=== PATIENT | female | born 1935 | race African-American/Black ===

== ENCOUNTER 2022-07-31 13:34 | Inpatient (IN) ==
[2022-07-31 15:19] LABS: Basophils % 0.1 % (0.0-0.8); Hematocrit 29.5 VOL% (35.7-47.0); Hemoglobin 9.5 GM/DL (12.0-16.0); Immature Granulocytes % 0.3 %; Immature Granulocytes Absolute 0.03 #; Lymphocytes # 0.7 10*3/uL (1.4-4.0); Lymphocytes % 7.3 % (21.3-54.2); Mean Corpuscular HGB Conc 32.2 GM/DL (32-36); Mean Platelet Volume 11.3 FL (9.6-12.0); Monocytes # 1.4 10*3/uL (0.11-0.8); Monocytes % 14.7 % (1.7-12.7); Neutrophils % 77.6 % (38.7-73.9); Platelet Count 154 T/CUMM (130-400); Red Blood Count 3.01 MC/CUMM (3.8-5.5); Red Cell Distribution Width 14.1 % (9.3-17.3); White Blood Count 9.7 T/CUMM (4-12)
[2022-07-31] MEDS ORDERED: ONDANSETRON 4 MG/2 ML VIAL IV PRN (15:39)
[2022-07-31] MEDS ORDERED: hydrALAZINE 20 MG/1 ML VIAL IV PRN (15:39)
[2022-07-31] MEDS ORDERED: ENOXAPARIN 30 MG/0.3 ML SYRINGE SUBCUT SCH (16:00)
[2022-07-31 16:12] LABS: Bacteria,Urine Occasional /HPF (Few); Bilirubin,Urine Negative (Negative); Blood, Urine Moderate mg/dL (Negative); Glucose,Urine (UA) 50 mg/dL (Negative); Hyaline Casts,Urine 11 /LPF (0-3); Ketones,Urine Negative (Negative); Nitrite,Urine Negative (Negative); Protein,Urine 100 mg/dL (Negative); RBC,Urine 1 /HPF (0-4); Squamous Epithelial Cell,Urine Occasional /HPF (0-10); Urine Appearance CLOUDY (Clear); Urine Color Yellow (Yellow); Urine Specific Gravity 1.015 (1.001-1.035); Urine Urobilinogen < 2.0 eU/dL (<2.0)
[2022-07-31 16:15] LABS: Albumin 3.5 G/DL (3.4-5.0); Calcium 9.4 MG/DL (8.5-10.1); Osmolality,Calculated 295.1 MOS/KG (273-304); Potassium 3.7 MMOL/L (3.5-5.1); Total Protein 7.1 G/DL (6.4-8.2)
[2022-07-31] MEDS: SODIUM CHLORIDE 0.9% 1,000 ML IV SCH (17:02)
[2022-07-31] MEDS: LEVALBUTEROL 1.25 MG/3 ML NEB RESP TX SCH (21:15)
[2022-07-31] MEDS: DONEPEZIL 5 MG TABLET PO SCH (22:23)
[2022-07-31] MEDS: METOPROLOL TARTRATE 25 MG TABLET PO SCH (22:24)
[2022-08-01] MEDS: LEVALBUTEROL 1.25 MG/3 ML NEB RESP TX SCH ×4 (00:30→21:00)
[2022-08-01] MEDS: SODIUM CHLORIDE 0.9% 1,000 ML IV SCH ×3 (02:15→18:57)
[2022-08-01 04:48] LABS: Basophils % 0.1 % (0.0-0.8); Hematocrit 27.8 VOL% (35.7-47.0); Hemoglobin 8.7 GM/DL (12.0-16.0); Immature Granulocytes % 0.6 %; Immature Granulocytes Absolute 0.05 #; Lymphocytes # 0.7 10*3/uL (1.4-4.0); Lymphocytes % 7.7 % (21.3-54.2); Mean Corpuscular HGB Conc 31.3 GM/DL (32-36); Mean Platelet Volume 11.7 FL (9.6-12.0); Monocytes # 1.4 10*3/uL (0.11-0.8); Neutrophils % 75.6 % (38.7-73.9); Platelet Count 130 T/CUMM (130-400); Red Cell Distribution Width 14.2 % (9.3-17.3); White Blood Count 8.8 T/CUMM (4-12)
[2022-08-01 05:17] LABS: Calcium 8.5 MG/DL (8.5-10.1); Osmolality,Calculated 295.8 MOS/KG (273-304); Potassium 3.5 MMOL/L (3.5-5.1); Thyroid Stimulating Hormone 2.19 uIU/ml (0.358-3.74)
[2022-08-01 05:52] LABS: Band Neutrophils 4 % (0-10); Lymphocytes 17 % (20-55); Total Cells Counted 100
[2022-08-01 05:53] LABS: Platelet Estimate Adequate
[2022-08-01] MEDS: PANTOPRAZOLE 40 MG TABLET PO SCH (08:32)
[2022-08-01] MEDS: METOPROLOL TARTRATE 25 MG TABLET PO SCH ×2 (08:32→20:10)
[2022-08-01] MEDS ORDERED: ONDANSETRON 4 MG/2 ML VIAL ONE (10:29)
[2022-08-01] MEDS ORDERED: MIDAZOLAM 2 MG/2 ML VIAL ONE (10:29)
[2022-08-01] MEDS ORDERED: KETAMINE 500 MG/10 ML VIAL ONE (10:30)
[2022-08-01] MEDS ORDERED: buprenorphine HCL 0.3 MG/ML VIAL ONE (10:30)
[2022-08-01] MEDS ORDERED: ROPIVACAINE 0.5% 30 ML VIAL ONE (10:33)
[2022-08-01] MEDS ORDERED: DEXAMETHASONE 4 MG/1 ML VIAL ONE (10:33)
[2022-08-01] MEDS ORDERED: LIDOCAINE 1% 5 ML VIAL ONE (10:33)
[2022-08-01] MEDS ORDERED: ePHEDrine 50 MG/ML VIAL ONE (13:09)
[2022-08-01] MEDS ORDERED: PHENYLEPHRINE 10 MG/1 ML VIAL IV ONE ×3 (13:16→14:21)
[2022-08-01] MEDS ORDERED: PHENYLEPHRINE 1 MG/10 ML SYRINGE IV ONE (14:03)
[2022-08-01] MEDS ORDERED: LACTATED RINGERS 1,000 ML IV ONE (14:03)
[2022-08-01] MEDS ORDERED: SEVOFLURANE 1 UNIT/15 MINUTE INH ONE (14:03)
[2022-08-01] MEDS ORDERED: ETOMIDATE 40 MG/20 ML VIAL IV ONE (14:03)
[2022-08-01] MEDS ORDERED: MAGNESIUM HYDROXIDE SUSP 30 ML UDCUP PO PRN (14:05)
[2022-08-01 14:53] LABS: Amorphous Crystals,Urine Occasional /HPF (Few); Bacteria,Urine Occasional /HPF (Few); Bilirubin,Urine Negative (Negative); Blood, Urine Moderate mg/dL (Negative); Glucose,Urine (UA) Negative (Negative); Hyaline Casts,Urine 10 /LPF (0-3); Ketones,Urine 5 mg/dL (Negative); Mucus,Urine Occasional /LPF (Occasional); Nitrite,Urine Negative (Negative); Protein,Urine Negative (Negative); RBC,Urine 19 /HPF (0-4); Squamous Epithelial Cell,Urine Occasional /HPF (0-10); Urine Appearance Slightly Hazy (Clear); Urine Color Yellow (Yellow); Urine Specific Gravity 1.016 (1.001-1.035); Urine Urobilinogen < 2.0 eU/dL (<2.0)
[2022-08-01] MEDS ORDERED: PHENYLEPHRINE DRIP 40 MG/250 ML PREMIX IV ONE (15:25)
[2022-08-01] MEDS ORDERED: PHENYLEPHRINE DRIP 40 MG/250 ML PREMIX IV PRN (15:33)
[2022-08-01] MEDS: POTASSIUM CHLORIDE INJ 20 MEQ in LACTATED RINGERS 1,000 ML IV SCH (16:01)
[2022-08-01] MEDS: DONEPEZIL 5 MG TABLET PO SCH (20:10)
[2022-08-01] MEDS: DOCUSATE SODIUM 100 MG CAPSULE PO SCH (20:10)
[2022-08-02] MEDS: LEVALBUTEROL 1.25 MG/3 ML NEB RESP TX SCH ×4 (00:15→19:55)
[2022-08-02] MEDS: MORPHINE 2 MG/1 ML SYRINGE IV PRN (01:19)
[2022-08-02] MEDS: POTASSIUM CHLORIDE INJ 20 MEQ in LACTATED RINGERS 1,000 ML IV SCH ×3 (02:39→16:13)
[2022-08-02 04:40] LABS: Hematocrit 23.1 VOL% (35.7-47.0); Hemoglobin 7.3 GM/DL (12.0-16.0); Immature Granulocytes % 0.5 %; Immature Granulocytes Absolute 0.04 #; Lymphocytes # 0.3 10*3/uL (1.4-4.0); Lymphocytes % 3.5 % (21.3-54.2); Mean Corpuscular HGB Conc 31.6 GM/DL (32-36); Mean Corpuscular Volume 100.4 FL (87-102); Mean Platelet Volume 11.3 FL (9.6-12.0); Monocytes # 1.1 10*3/uL (0.11-0.8); Monocytes % 12.9 % (1.7-12.7); Neutrophils % 83.1 % (38.7-73.9); Platelet Count 135 T/CUMM (130-400); Red Cell Distribution Width 14.4 % (9.3-17.3); White Blood Count 8.2 T/CUMM (4-12)
[2022-08-02 05:01] LABS: Albumin 2.8 G/DL (3.4-5.0); Bilirubin,Total 0.8 MG/DL (0.20-1.00); Calcium 8.2 MG/DL (8.5-10.1); Osmolality,Calculated 306.4 MOS/KG (273-304); Potassium 3.8 MMOL/L (3.5-5.1); Total Protein 6.4 G/DL (6.4-8.2)
[2022-08-02 05:07] LABS: Lymphocytes 7 % (20-55); Platelet Estimate Adequate; Total Cells Counted 100
[2022-08-02] MEDS ORDERED: SODIUM CHLORIDE 0.9% 1,000 ML IV PRN (07:07)
[2022-08-02] MEDS ORDERED: FUROSEMIDE 40 MG/4 ML VIAL IV PRN (07:08)
[2022-08-02] MEDS: DOCUSATE SODIUM 100 MG CAPSULE PO SCH ×2 (08:42→20:35)
[2022-08-02] MEDS: METOPROLOL TARTRATE 25 MG TABLET PO SCH ×2 (08:42→20:43)
[2022-08-02] MEDS: FONDAPARINUX 2.5 MG/0.5 ML SYRINGE SUBCUT SCH (08:43)
[2022-08-02] MEDS: PANTOPRAZOLE 40 MG TABLET PO SCH (08:43)
[2022-08-02] MEDS: DONEPEZIL 5 MG TABLET PO SCH (20:43)
[2022-08-03] MEDS: LEVALBUTEROL 1.25 MG/3 ML NEB RESP TX SCH ×4 (00:30→19:07)
[2022-08-03] MEDS: POTASSIUM CHLORIDE INJ 20 MEQ in LACTATED RINGERS 1,000 ML IV SCH ×2 (02:52→09:57)
[2022-08-03 05:01] LABS: Basophils % 0.1 % (0.0-0.8); Hematocrit 28.4 VOL% (35.7-47.0); Hemoglobin 9.3 GM/DL (12.0-16.0); Immature Granulocytes % 0.3 %; Immature Granulocytes Absolute 0.02 #; Lymphocytes # 0.5 10*3/uL (1.4-4.0); Lymphocytes % 6.9 % (21.3-54.2); Mean Corpuscular HGB Conc 32.7 GM/DL (32-36); Mean Corpuscular Volume 95.3 FL (87-102); Mean Platelet Volume 11.8 FL (9.6-12.0); Monocytes % 13.2 % (1.7-12.7); Neutrophils % 79.5 % (38.7-73.9); Platelet Count 120 T/CUMM (130-400); Red Blood Count 2.98 MC/CUMM (3.8-5.5); Red Cell Distribution Width 15.3 % (9.3-17.3); White Blood Count 7.8 T/CUMM (4-12)
[2022-08-03 05:16] LABS: Calcium 8.4 MG/DL (8.5-10.1); Potassium 4.4 MMOL/L (3.5-5.1)
[2022-08-03 05:33] LABS: Platelet Estimate Adequate
[2022-08-03 05:35] LABS: Anisocytosis 1+; Burr Cells Few
[2022-08-03 05:36] LABS: Macrocytosis Slight; Ovalocytes Few
[2022-08-03] MEDS ORDERED: MAGNESIUM SULF RIDER 4 GM/100 ML PREMIX IV PRN (07:17)
[2022-08-03] MEDS ORDERED: MAGNESIUM SULF RIDER 2 GM/50 ML PREMIX IV PRN (07:17)
[2022-08-03] MEDS ORDERED: MAGNESIUM SULF RIDER 2 GM/50 ML PREMIX IV ONE (07:40)
[2022-08-03] MEDS: METOPROLOL TARTRATE 25 MG TABLET PO SCH ×2 (09:00→20:38)
[2022-08-03] MEDS: FONDAPARINUX 2.5 MG/0.5 ML SYRINGE SUBCUT SCH (09:00)
[2022-08-03] MEDS: PANTOPRAZOLE 40 MG TABLET PO SCH (09:00)
[2022-08-03] MEDS: DOCUSATE SODIUM 100 MG CAPSULE PO SCH ×2 (09:00→20:38)
[2022-08-03] MEDS: MORPHINE 2 MG/1 ML SYRINGE IV PRN (12:09)
[2022-08-03] MEDS ORDERED: TUBERCULIN SKIN TEST 0.1 ML SYRINGE INTRADERM ONE (12:33)
[2022-08-03] MEDS: DONEPEZIL 5 MG TABLET PO SCH (20:38)
[2022-08-04] MEDS: LEVALBUTEROL 1.25 MG/3 ML NEB RESP TX SCH ×4 (00:19→19:16)
[2022-08-04] MEDS: MORPHINE 2 MG/1 ML SYRINGE IV PRN ×3 (03:50→16:51)
[2022-08-04 04:58] LABS: Basophils % 0.1 % (0.0-0.8); Eosinophils % 0.1 % (0.00-10.9); Hematocrit 32.5 VOL% (35.7-47.0); Hemoglobin 10.5 GM/DL (12.0-16.0); Immature Granulocytes % 0.3 %; Immature Granulocytes Absolute 0.02 #; Lymphocytes # 0.6 10*3/uL (1.4-4.0); Lymphocytes % 8.4 % (21.3-54.2); Mean Corpuscular HGB Conc 32.3 GM/DL (32-36); Mean Corpuscular Volume 95.3 FL (87-102); Mean Platelet Volume 11.4 FL (9.6-12.0); Monocytes # 0.8 10*3/uL (0.11-0.8); Monocytes % 10.8 % (1.7-12.7); Neutrophils % 80.3 % (38.7-73.9); Platelet Count 164 T/CUMM (130-400); Red Blood Count 3.41 MC/CUMM (3.8-5.5); Red Cell Distribution Width 15.2 % (9.3-17.3); White Blood Count 7.5 T/CUMM (4-12)
[2022-08-04 05:12] LABS: Calcium 8.8 MG/DL (8.5-10.1); Osmolality,Calculated 286.4 MOS/KG (273-304); Potassium 4.3 MMOL/L (3.5-5.1)
[2022-08-04] MEDS: FONDAPARINUX 2.5 MG/0.5 ML SYRINGE SUBCUT SCH (08:32)
[2022-08-04] MEDS: PANTOPRAZOLE 40 MG TABLET PO SCH (08:32)
[2022-08-04] MEDS: METOPROLOL TARTRATE 25 MG TABLET PO SCH ×3 (08:32→21:33)
[2022-08-04] MEDS: DOCUSATE SODIUM 100 MG CAPSULE PO SCH ×3 (08:32→21:33)
[2022-08-04 09:59] LABS: % Iron Saturation 18.4 % (18-50)
[2022-08-04 13:35] LABS: Folate 7.64 NG/ML (5.38-24.0)
[2022-08-04] MEDS ORDERED: LORazepam 2 MG/1 ML VIAL IV PRN (17:31)
[2022-08-04] MEDS: DONEPEZIL 5 MG TABLET PO SCH ×2 (21:32→21:33)
[2022-08-05] MEDS: LEVALBUTEROL 1.25 MG/3 ML NEB RESP TX SCH ×4 (01:27→19:28)
[2022-08-05 03:57] LABS: Basophils % 0.2 % (0.0-0.8); Eosinophils % 0.2 % (0.00-10.9); Hematocrit 28.9 VOL% (35.7-47.0); Hemoglobin 8.9 GM/DL (12.0-16.0); Immature Granulocytes % 0.5 %; Immature Granulocytes Absolute 0.03 #; Lymphocytes # 0.7 10*3/uL (1.4-4.0); Lymphocytes % 10.8 % (21.3-54.2); Mean Corpuscular HGB Conc 30.8 GM/DL (32-36); Mean Platelet Volume 11.5 FL (9.6-12.0); Monocytes # 0.8 10*3/uL (0.11-0.8); Monocytes % 12.5 % (1.7-12.7); Neutrophils % 75.8 % (38.7-73.9); Platelet Count 164 T/CUMM (130-400); Red Blood Count 2.92 MC/CUMM (3.8-5.5); Red Cell Distribution Width 14.8 % (9.3-17.3); White Blood Count 6.6 T/CUMM (4-12)
[2022-08-05 04:16] LABS: Osmolality,Calculated 297.7 MOS/KG (273-304); Potassium 4.4 MMOL/L (3.5-5.1)
[2022-08-05] MEDS: DOCUSATE SODIUM 100 MG CAPSULE PO SCH ×2 (09:41→20:31)
[2022-08-05] MEDS: METOPROLOL TARTRATE 25 MG TABLET PO SCH ×2 (09:42→20:31)
[2022-08-05] MEDS: FONDAPARINUX 2.5 MG/0.5 ML SYRINGE SUBCUT SCH (09:49)
[2022-08-05] MEDS: PANTOPRAZOLE 40 MG TABLET PO SCH (16:56)
[2022-08-05] MEDS: DONEPEZIL 5 MG TABLET PO SCH (20:31)
[2022-08-06] MEDS: LEVALBUTEROL 1.25 MG/3 ML NEB RESP TX SCH ×4 (01:53→19:04)
[2022-08-06 04:45] LABS: Basophils % 0.1 % (0.0-0.8); Eosinophils # 0.1 10*3/uL (0.0-0.87); Eosinophils % 1.7 % (0.00-10.9); Hematocrit 33.8 VOL% (35.7-47.0); Hemoglobin 10.3 GM/DL (12.0-16.0); Immature Granulocytes % 0.5 %; Immature Granulocytes Absolute 0.04 #; Lymphocytes # 0.9 10*3/uL (1.4-4.0); Lymphocytes % 10.4 % (21.3-54.2); Mean Corpuscular HGB Conc 30.5 GM/DL (32-36); Mean Corpuscular Volume 100.9 FL (87-102); Mean Platelet Volume 10.8 FL (9.6-12.0); Monocytes % 11.7 % (1.7-12.7); Neutrophils % 75.6 % (38.7-73.9); Platelet Count 211 T/CUMM (130-400); Red Blood Count 3.35 MC/CUMM (3.8-5.5); Red Cell Distribution Width 14.7 % (9.3-17.3); White Blood Count 8.4 T/CUMM (4-12)
[2022-08-06 05:14] LABS: Calcium 8.6 MG/DL (8.5-10.1); Osmolality,Calculated 297.6 MOS/KG (273-304); Potassium 4.6 MMOL/L (3.5-5.1)
[2022-08-06] MEDS: FONDAPARINUX 2.5 MG/0.5 ML SYRINGE SUBCUT SCH (09:01)
[2022-08-06] MEDS: METOPROLOL TARTRATE 25 MG TABLET PO SCH ×2 (09:03→20:28)
[2022-08-06] MEDS: PANTOPRAZOLE 40 MG TABLET PO SCH (09:03)
[2022-08-06] MEDS: DOCUSATE SODIUM 100 MG CAPSULE PO SCH ×2 (09:03→20:28)
[2022-08-06] MEDS ORDERED: ALUMINUM/MAGNES/SIMETH MAX STR 30 ML UDCUP PO PRN (13:15)
[2022-08-06] MEDS ORDERED: ALUM/MAG/SIMETH/LIDO VISC 1:1 30 ML BOTTLE PO ONE (13:15)
[2022-08-06] MEDS: DONEPEZIL 5 MG TABLET PO SCH (20:28)
[2022-08-07] MEDS: LEVALBUTEROL 1.25 MG/3 ML NEB RESP TX SCH ×2 (00:14→07:10)
[2022-08-07] MEDS: PANTOPRAZOLE 40 MG TABLET PO SCH (10:07)
[2022-08-07] MEDS: FONDAPARINUX 2.5 MG/0.5 ML SYRINGE SUBCUT SCH (10:07)
[2022-08-07] MEDS: METOPROLOL TARTRATE 25 MG TABLET PO SCH (10:07)
[2022-08-07] MEDS: DOCUSATE SODIUM 100 MG CAPSULE PO SCH (10:07)
[2022-08-07 11:19] VITALS: BP 148/83
== END 2022-08-07 11:30 | disposition hospice, home (50) | DRG 481 ==
LOC: N.ED 13:34 → SUATTDRO 15:39 → N.EDINP 15:39 → N.TELEN 19:30 → N.ICU 08-01 15:28
PROVIDERS: ADMIT Emergency Medicine; ATTEND Internal Medicine